=== PATIENT | male | born 1960 | race Caucasian/White ===

== ENCOUNTER 2020-05-24 09:44 | Outpatient (REF) | payer MEDICAID, SELFPAY ==
--- NOTE | 2020-05-24 09:51 | EMG_ITS ---
Bilateral median and ulnar motor and sensory studies were performed. Bilateral radial sensory studies were performed and paraspinal muscles were tested. IMPRESSION: 1. 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 2. Mild bilateral ulnar neuropathy across cubital tunnel. MD FAVIO De La Garza/KHALIF / [id number]
== END 2020-05-24 09:45 | disposition home or self-care (01) ==
LOC: HO.NEURO 09:44
PROVIDERS: PCP Internal Medicine; Visit Provider Internal Medicine
DX: R20.0 Anesthesia of skin (principal)
CPT/HCPCS: 95861; 95886; 95911

== ENCOUNTER 2020-06-05 10:50 | Outpatient (REF) | payer MEDICAID, SELFPAY ==
--- NOTE | ~2020-06-05 | XR_ITS ---
EXAMINATION: XR CHEST CLINICAL INFORMATION: Shortness of breath. Localized edema. COMPARISON: 11/30/2019 TECHNIQUE: 2 views of the chest were obtained. FINDINGS: There is pleural parenchymal scarring within the right upper lung with a large cavity contiguous with the pleural space, with resolution of previously seen associated patchy parenchymal opacities within right upper lung. The cavity appears thin-walled on the current exam. Left lung clear. Normal heart size and pulmonary vascularity. 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 No evidence of superimposed pneumonitis or focal consolidation.
[2020-06-05 11:54] LABS: Glucose Urine UA NEG (NEG); Leukocyte Esterase Urine NEG (NEG); Nitrite Urine NEG (NEG); Specific Gravity - Urine 1.015 (1.005-1.025); Urine Blood NEG (NEG); Urine Ketones NEG (NEG); Urine Protein NEG (NEG-TRACE)
[2020-06-05 11:58] LABS: Appearance Urine CLEAR; Color Urine YELLOW
[2020-06-05 12:05] LABS: Hematocrit 40.3 % (42-52); Hemoglobin 13.1 g/dl (14.0-18.0); Mean Corpuscular HGB Conc 32.5 g/dl (31.0-36.0); Mean Corpuscular Volume 98.5 fL (80-98); Mean Platelet Volume 9.1 fL (9.4-12.4); Platelet Count 360 X10*3/uL (160-400); Red Blood Count 4.09 X10*6/uL (4.60-5.80); Red Cell Distribution Width 13.9 % (11.0-16.0); White Blood Count 5.3 X10*3/uL (4.8-10.8)
[2020-06-05 12:31] LABS: Alanine Aminotransferase 7 U/L (0-40); Alkaline Phosphatase 75 U/L (39-117); Anion Gap 18 (12-20); Aspartate Amino Transferase 16 U/L (5-37); Bilirubin Total 0.4 mg/dL (0.0-1.0); Blood Urea Nitrogen 25 mg/dL (9-16); Calcium 9.3 mg/dL (8.4-10.2); Carbon Dioxide 24 mmol/L (22-29); Chloride 100 mmol/L (96-108); Estimated Glomerular Filt Rate 43; Glucose Random 92 mg/dL (60-115); Sodium 137 mmol/L (135-145); Total Protein 8.4 g/dL (6.5-8.0)
== END 2020-06-05 10:51 | disposition home or self-care (01) ==
LOC: HO.LAB 10:50
PROVIDERS: PCP Internal Medicine; Visit Provider Internal Medicine
DX: I10 Essential (primary) hypertension (principal); R60.0 Localized edema; R06.02 Shortness of breath
CPT/HCPCS: 36415; 71046; 80053; 81003; 85027

== ENCOUNTER 2020-07-05 13:45 | Outpatient (REF) | payer MEDICAID, SELFPAY ==
--- NOTE | ~2020-07-05 | US_ITS ---
EXAMINATION: US RETROPERITONEAL LIMITED (RENAL ONLY) CLINICAL INFORMATION: Abnormal kidney function. COMPARISON: CT abdomen and pelvis 11/24/2019. TECHNIQUE: Real-time imaging of the kidneys. FINDINGS: RIGHT KIDNEY: 11.7 x 7.1 x 5.5 cm (SAG x AP x TRV). The kidney is normal in size, contour, and echogenicity. Renal cortical thickness is normal. No calculi or focal parenchymal lesions. No hydronephrosis. LEFT KIDNEY: 12.9 x 7.4 x 8.6 cm (SAG x AP x TRV). There is severe hydronephrosis with marked pelvocaliectasis and associated renal cortical thinning. The kidney is mildly enlarged as a result. No renal calculi or focal parenchymal lesions are identified. BLADDER: Right ureteral jet is demonstrated; left is not. Bladder is otherwise unremarkable. US/US renal BI IMPRESSION: Severe left-sided hydronephrosis with associated renal cortical atrophy..
== END 2020-07-05 13:46 | disposition home or self-care (01) ==
LOC: HO.HMGCX 13:45
PROVIDERS: PCP Internal Medicine; Visit Provider Internal Medicine
DX: R20.0 Anesthesia of skin (principal); R94.4 Abnormal results of kidney function studies
CPT/HCPCS: 76775

== ENCOUNTER 2020-07-10 10:47 | Outpatient (REF) | payer MEDICAID, SELFPAY ==
--- NOTE | ~2020-07-10 | XR_ITS ---
EXAMINATION: XR CHEST CLINICAL INFORMATION: COPD COMPARISON: Chest x-ray June 05, 2020 TECHNIQUE: 2 views of the chest were obtained. FINDINGS: Stable cardiac silhouette. Similar appearance of right upper lobe scarring with apical cavitation. There is good aeration of the left hemithorax. No pleural effusion or pneumothorax appreciated. Degenerative changes of the spine. XR/XR chest 2V IMPRESSION: Stable chronic changes of the right lung. No superimposed acute pulmonary pathology
== END 2020-07-10 10:48 | disposition home or self-care (01) ==
LOC: HO.XRAY 10:47
PROVIDERS: PCP Internal Medicine; Visit Provider Internal Medicine
DX: J44.9 Chronic obstructive pulmonary disease, unspecified (principal); Z87.891 Personal history of nicotine dependence
CPT/HCPCS: 71046; 99202

== ENCOUNTER 2020-07-17 10:45 | Outpatient (REF) | payer MEDICAID, SELFPAY | END 2020-07-17 10:46 | disposition home or self-care (01) | LOC: HO.RESP 10:45 | PROVIDERS: PCP Internal Medicine; Visit Provider Internal Medicine | DX: J44.9 Chronic obstructive pulmonary disease, unspecified (principal); Z87.891 Personal history of nicotine dependence | CPT/HCPCS: 94010; 94727; 94729 ==

== ENCOUNTER → 2020-07-23 10:22 | Outpatient (BNVA) | payer MEDICAID, SELFPAY | PROVIDERS: PCP Internal Medicine; Visit Provider Internal Medicine | DX: J44.9 Chronic obstructive pulmonary disease, unspecified (principal); Z87.891 Personal history of nicotine dependence; Z79.899 Other long term (current) drug therapy | CPT/HCPCS: 99212 ==

== ENCOUNTER 2020-08-07 11:20 | Outpatient (REF) | payer MEDICAID, SELFPAY ==
--- NOTE | ~2020-08-07 | XR_ITS ---
EXAMINATION: XR KNEE, LEFT CLINICAL INFORMATION: Left knee pain COMPARISON: None TECHNIQUE: 4 view left knee FINDINGS: There is no evidence of acute fracture or dislocation of the left knee. No left knee effusion is noted. There is mild spurring undersurface of the patella. There is patella spur site of insertion of the patella tendon. Vascular calcifications are seen. XR/XR knee LT 4V IMPRESSION: No significant bony abnormality of the left knee identified. No left knee effusion seen. Mild patellofemoral joint degenerative spurring.
--- NOTE | ~2020-08-07 | XR_ITS ---
EXAMINATION: XR SHOULDER, LEFT CLINICAL INFORMATION: Left shoulder pain. COMPARISON: None TECHNIQUE: AP external rotation, Grashey, scapular Y, and axillary views of the left shoulder. FINDINGS: There is no evidence of acute fracture or dislocation of the left shoulder. There is calcific tendinitis present. There is narrowing with degenerative spurring of the left acromioclavicular joint. There is no widening of the coracoclavicular space. Degenerative spurring is seen about the glenohumeral joint. Regions of diminished density are seen about the humeral head and proximal humeral shaft which may be degenerative or postsurgical in nature. No expansile destructive bony lesion is identified. XR/XR shoulder LT min 2V IMPRESSION: Calcific tendinitis with degenerative change of the left shoulder, as described.
== END 2020-08-07 11:21 | disposition home or self-care (01) ==
LOC: HO.XRAY 11:20
PROVIDERS: PCP Internal Medicine; Visit Provider Internal Medicine
DX: M25.512 Pain in left shoulder (principal); M25.562 Pain in left knee
CPT/HCPCS: 73030; 73564

== ENCOUNTER 2020-11-06 10:25 | Outpatient (REF) | payer MEDICAID, SELFPAY ==
[2020-11-06 12:38] LABS: Anion Gap 15 (12-20); Blood Urea Nitrogen 21 mg/dL (9-16); Calcium 9.1 mg/dL (8.4-10.2); Carbon Dioxide 27 mmol/L (22-29); Chloride 100 mmol/L (96-108); Estimated Glomerular Filt Rate 50; Glucose Random 101 mg/dL (60-115); Potassium 4.8 mmol/L (3.3-5.1); Sodium 137 mmol/L (135-145)
== END 2020-11-06 10:26 | disposition home or self-care (01) ==
LOC: HO.LAB 10:25
PROVIDERS: PCP Internal Medicine; Visit Provider Internal Medicine
DX: I10 Essential (primary) hypertension (principal)
CPT/HCPCS: 36415; 80048

== ENCOUNTER → 2021-01-08 13:49 | Outpatient (BNVA) | payer MEDICAID, SELFPAY | PROVIDERS: PCP Internal Medicine; Visit Provider Nurse Practitioner Family | DX: M47.27 Other spondylosis with radiculopathy, lumbosacral region (principal); M48.061 Spinal stenosis, lumbar region without neurogenic claudication | CPT/HCPCS: 99202 ==